=== PATIENT | male | born 1975 | race Caucasian/White ===

== ENCOUNTER 2024-05-20 06:17 | Day surgery (SDC) | payer OTHER ==
[~2024-05-20] VITALS: Ht 177.8 cm; Wt 148.8 kg
[2024-05-20] MEDS ORDERED: fentaNYL citrate 0.05 MG/ML VIAL ONE (07:25)
[2024-05-20] MEDS ORDERED: MIDAZOLAM 5 MG/5 ML VIAL ONE (07:25)
[2024-05-20] MEDS: MIDAZOLAM 5 MG/5 ML VIAL IV ONE (08:03)
== END 2024-05-20 09:35 | disposition home or self-care (01) ==
LOC: MDS 06:17 → MMU 06:28 → MDS 09:35
PROVIDERS: ATTEND Internal Medicine Gastroenterology
DX: K21.9 Gastro-esophageal reflux disease without esophagitis (principal); K44.9 Diaphragmatic hernia without obstruction or gangrene; K31.7 Polyp of stomach and duodenum; F32.A Depression, unspecified; F41.9 Anxiety disorder, unspecified; M19.90 Unspecified osteoarthritis, unspecified site; Z80.0 Family history of malignant neoplasm of digestive organs; Z79.899 Other long term (current) drug therapy; Z98.890 Other specified postprocedural states
CPT/HCPCS: 36415; 43239; 86677; J2250; J3010